=== PATIENT | female | born 1975 | race Caucasian/White ===

== ENCOUNTER 2020-03-21 09:39 | Emergency (ER) | payer OTHER ==
[~2020-03-21] VITALS: Ht 177.8 cm; Wt 111.6 kg
[2020-03-21 09:50] VITALS: BP 125/93
--- NOTE | 2020-03-21 10:06 | ER.PDOC ---
General Chief Complaint: Extremities Stated Complaint: RIGHT LEG/KNEE PAIN Time seen by MD: 10:00 Source: patient Exam Limitations: no limitations History of Present Illness Onset: last week Where: home Context: fall Severity: moderate Associated Symptoms: other Allergies: Coded Allergies: Influenza Virus Vacc,Specific (Verified Allergy, 08/20/13) epinephrine (Verified Allergy, 08/20/13) epinephrine bitartrate (Verified Allergy, 08/20/13) morphine (Verified Allergy, 08/20/13) Past Medical History Medical History: no pertinent history Surgical History: cholecystectomy, tubal Social History Alcohol Use: none Drug Use: none Reviewed Nursing Reviewed: Vital Signs, Abn. Noted Review of Systems All Other Systems: Reviewed and Negative Physical Exam General Appearance: Alert, No Apparent Distress Foot: nml inspection, non-tender, nml color/temp, skin intact Ankle: nml inspection, non-tender, nml ROM, no joint swelling, skin intact Knee: see diagram, tenderness, limited ROM by pain Thigh/Hip: nml inspection 1 - patellar tenderness Gait: antalgic gait Neuro/Vasc/Tendon: sensation nml, motor nml, no vascular compromise, tendon function nml Skin: warm/dry Head/ENT: nml inspection, pharynx nml Neck/Back: nml inspection, non-tender Abdomen: non-tender, pelvis stable Splinting Splinting : Pre-Made Type: knee immobilizer Results/Orders Results/Orders Orders - NIKITA LOPEZ MD Xr Knee Rt 3v (03/21/20 10:02) Vital Signs Date Time Temp Pulse Resp B/P (MAP) Pulse Ox O2 Delivery O2 Flow Rate FiO2 03/21/20 09:50 98.1 59 16 125/93 (104) 100 Room Air 03/21/20 09:50 98.1 59 16 03/21/20 09:50 98.1 100 16 100 Departure Time of Disposition: 11:11 Disposition: 01 HOME, SELF-CARE Impression: Primary Impression: Internal derangement of knee Condition: Stable Referrals: PCP,UNKNOWN (PCP) PRIMARY CARE PROVIDER Duration or Time Spent with Pa: 12m NIKITA LOPEZ MD Mar 21, 2020 10:06
--- NOTE | 2020-03-21 10:38 | DIREP ---
PROCEDURE:XRAY KNEE 3 VIEWS-RT COMPARISON:None. INDICATIONS:knee sprain FINDINGS: BONES:Normal. JOINTS:A small joint effusion is seen. SOFT TISSUES:A 14 mm well corticated bony density or calcification is seen anterior and inferior to the patella suggestive of heterotopic ossification and/or dystrophic calcification. OTHER:No additional findings. CONCLUSION:There is a small joint effusion. No fracture is demonstrated. Dictated by: Lyle Lewis M.D. on 03/21/2020 at 10:35 AM
== END 2020-03-21 10:32 | disposition home or self-care (01) ==
LOC: ER 09:39
DX: M23.91 Unspecified internal derangement of right knee (principal); Z88.5 Allergy status to narcotic agent; Z90.49 Acquired absence of other specified parts of digestive tract; Z88.7 Allergy status to serum and vaccine
CPT/HCPCS: 29505; 99283; 73562-RT

== ENCOUNTER 2021-08-08 14:34 | Emergency (ER) | payer OTHER ==
[2021-08-08 16:22] VITALS: BP 114/67
[2021-08-08] MEDS ORDERED: TYLENOL PO STA (17:51)
--- NOTE | 2021-08-08 17:56 | ER.PDOC ---
General Chief Complaint: Cough/Congestion Stated Complaint: FEVER/COUGH/HEADACHE Time seen by MD: 17:53 Source: patient Exam Limitations: no limitations History of Present Illness Initial Comments Fever, cough, runny nose, bodyaches and headache since last night. Timing/Duration: gradual Severity: moderate Associated Symptoms: runny nose, cough, headache Allergies: Coded Allergies: Influenza Virus Vacc,Specific (Verified Allergy, 08/20/13) epinephrine (Verified Allergy, 08/20/13) epinephrine bitartrate (Verified Allergy, 08/20/13) morphine (Verified Allergy, 08/20/13) Constitutional: see HPI EENTM: see HPI Respiratory: see HPI Cardiovascular: no symptoms reported Gastrointestinal: no symptoms reported All Other Systems: Reviewed and Negative Past Medical History Medical History: other Surgical History: no surgical history Family History Significant Family History: no pertinent family hx Social History Smoking: non-smoker Alcohol Use: none Drug Use: none Physical Exam General Appearance: alert, no distress Eye: eyes nml inspection Nose: rhinorrhea Throat: pharynx nml, airway nml Neck: nml inspection, supple Respiratory: no resp.distress, breath sounds nml Abdomen: non-tender, no organomegaly CVS: reg rate & rhythm, heart sounds nml Skin: color nml, no rash, warm/dry Extremities: non-tender, nml ROM, no pedal edema NEURO/PSYCH: oriented x 3, CN's nml as tested, motor nml, sensation nml, mood/affect nml Results/Orders Results/Orders Orders - PEPE HUI MD Influenza A&B (08/08/21 16:57) Covid19 Antigen Eliz Jennifer (08/08/21 16:57) Acetaminophen (Tylenol) (08/08/21 17:51) Vital Signs Date Time Temp Pulse Resp B/P (MAP) Pulse Ox O2 Delivery O2 Flow Rate FiO2 08/08/21 16: 100.3 120 18 97 08/08/21 16: 100.3 120 20 114/67 (83) 97 Room Air 08/08/21 16:22 100.3 120 20 Laboratory Tests Test 08/08/21 16:29 Influenza Type A Antigen NEGATIVE (NEG) Influenza Type B Antigen NEGATIVE (NEG) SARS-CoV-2 Antigen (Rapid) NEGATIVE (NEGATIVE) Progress Progress Patient is negative for flu and COVID. ER DEPART Departure Time of Disposition: 17:55 Disposition: 01 HOME / SELF CARE / HOMELESS Impression: Primary Impression: Viral upper respiratory tract infection with cough Condition: Stable Referrals: PCP,UNKNOWN (PCP) PRIMARY CARE PROVIDER Additional Instructions: Mucinex DM [id number] as directed Tylenol Follow-up with your PCP in 1 week Return to ED if worsening symptoms or concerns Duration or Time Spent with Pa: 10 min PEPE HUI MD Aug 08, 2021 17:56
[2021-08-08] MEDS ORDERED: TYLENOL PO ONE (18:07)
== END 2021-08-08 18:26 | disposition home or self-care (01) ==
LOC: ER 14:34
DX: J06.9 Acute upper respiratory infection, unspecified (principal); Z20.822 Contact with and (suspected) exposure to COVID-19; Z88.5 Allergy status to narcotic agent; Z88.8 Allergy status to other drugs, medicaments and biological substances
CPT/HCPCS: 87426; 87804 ×2; 99283; A9150

== ENCOUNTER 2024-10-28 22:13 | Emergency (ER) | payer SELFPAY ==
[~2024-10-28] VITALS: Ht 177.8 cm; Wt 103.0 kg
[2024-10-28 22:48] VITALS: BP 138/81; PULSE 83; RESP 18; TEMP 98.4; O2SAT 98
[2024-10-28 23:16] LABS: INFLUENZA VIRUS A ANTIGEN NEGATIVE (NEG); INFLUENZA VIRUS B ANTIGEN NEGATIVE (NEG)
[2024-10-28 23:27] VITALS: BP 142/81; PULSE 85; RESP 18; O2SAT 96
== END 2024-10-28 23:35 | disposition home or self-care (01) ==
LOC: ER 22:13
DX: J04.2 Acute laryngotracheitis (principal); J06.9 Acute upper respiratory infection, unspecified; Z20.822 Contact with and (suspected) exposure to COVID-19; Z88.5 Allergy status to narcotic agent
CPT/HCPCS: 87070; 87426; 87804; 87880; 99283

== ENCOUNTER 2024-11-08 16:08 | Emergency (ER) | payer BC ==
[~2024-11-08] VITALS: Ht 177.8 cm; Wt 107.5 kg
[2024-11-08 16:37] VITALS: BP 127/44; PULSE 105; RESP 18; TEMP 36.55848; O2SAT 100
[2024-11-08] MEDS ORDERED: TORADOL ONE (16:48)
[2024-11-08] MEDS: TORADOL IV STA (17:00)
[2024-11-08 17:09] LABS: BASOPHIL # 0.1 10^3/uL (0.0-0.1); BASOPHIL % 0.6 % (0.1-1.2); EOSINOPHIL # 0.2 10^3/uL (0.0-0.2); EOSINOPHIL % 2.1 % (0.0-5.0); HEMATOCRIT(ML) 35.9 % (36.0-46.0); HEMOGLOBIN 10.9 g/dL (12.0-15.0); LYMPHOCYTES # 2.29 10^3/uL1 (1.0-4.8); LYMPHOCYTES % 23.8 % (24.0-44.0); MEAN CORP HGB 23.4 pg (26-34); MEAN CORP HGB CONCENTRATION 30.4 g/dL (33-36.5); MONOCYTES # 0.8 10^3/uL (0.3-0.8); MONOCYTES % 8.2 % (5.0-12.0); NEUTROPHIL # 6.3 10^3/uL (1.8-7.7); PLATELET COUNT 340 10^3/uL (150-400); RED BLOOD CELL 4.66 10^6/uL (4.00-5.20); RED CELL DISTRIBUTION WIDTH 15.9 % (11.5-14.5); WHITE BLOOD CELL 9.6 10^3/uL (4.5-11.0)
[2024-11-08 17:11] LABS: +ADD MANUAL DIFF(NO CHRG) NO
[2024-11-08 17:12] LABS: BILIRUBIN,URINE NEGATIVE (NEGATIVE); LEUKOCYTE ESTERASE ,URINE NEGATIVE (NEGATIVE); NITRATE,URINE NEGATIVE (NEGATIVE); UROBILINOGEN,URINE 0.2 E.U./dL (0.2)
[2024-11-08 17:20] LABS: APPEARANCE,URINE CLEAR; UA COLOR YELLOW
[2024-11-08 17:38] LABS: ALBUMIN(ML) 3.8 g/dL (3.4-5.0); ALBUMIN/GLOBULIN RATIO 0.926; ANION GAP 14.5; BUN/CREATININE RATIO 7.21 (10.0-20.0); CALCIUM 9.4 mg/dL (8.4-10.5); CARBON DIOXIDE 22.4 mmol/L (20.0-32); CREATININE SERUM 0.97 mg/dL (0.59-1.40); EST GFR, NON-AA 61.6 (>/=60); POTASSIUM 3.9 mmol/L (3.6-5.2)
[2024-11-08 18:17] VITALS: BP 134/53; PULSE 89; RESP 18; TEMP 97.8; O2SAT 100
[2024-11-08] MEDS ORDERED: DICL75TA2 PO (18:44)
[2024-11-08] MEDS ORDERED: METH-621 PO (18:44)
[2024-11-08 18:48] VITALS: BP 132/68; PULSE 87; RESP 18; O2SAT 100
== END 2024-11-08 18:50 | disposition home or self-care (01) ==
LOC: ER 16:08
DX: M54.50 Low back pain, unspecified (principal); F12.90 Cannabis use, unspecified, uncomplicated; Z88.5 Allergy status to narcotic agent
CPT/HCPCS: 99284; 74176; 96374; 81003; 80053; 85025; 36415; J1885